=== PATIENT | female | born 2000 | race African-American/Black ===

== ENCOUNTER 2023-12-07 13:11 | Emergency (ER) | payer MEDICAID ==
[~2023-12-07] VITALS: Ht 182.9 cm; Wt 76.4 kg
[2023-12-07 13:28] VITALS: BP 123/68; PULSE 67; RESP 19; TEMP 97.7; O2SAT 99
[2023-12-07] MEDS: ONDANSETRON 4 MG/2 ML VIAL IM ONE (14:31)
[2023-12-07] MEDS ORDERED: DOXY1TCP PO (15:31)
== END 2023-12-07 15:56 | disposition home or self-care (01) ==
LOC: MED 13:11
DX: O21.9 Vomiting of pregnancy, unspecified (principal); O99.891 Other specified diseases and conditions complicating pregnancy; N93.9 Abnormal uterine and vaginal bleeding, unspecified; O99.511 Diseases of the respiratory system complicating pregnancy, first trimester; J45.909 Unspecified asthma, uncomplicated; O99.341 Other mental disorders complicating pregnancy, first trimester; Z3A.00 Weeks of gestation of pregnancy not specified; Z79.899 Other long term (current) drug therapy; Z88.0 Allergy status to penicillin
CPT/HCPCS: 87086; 87491; 96372; 99283; J2405